=== PATIENT | female | born 1990 | race Caucasian/White ===

== ENCOUNTER 2016-11-19 11:47 | Emergency (ER) | payer BC ==
[~2016-11-19] VITALS: Wt 60.0 kg
[2016-11-19] MEDS ORDERED: ONDANSETRON 4 MG INJ IV STA (12:28)
[2016-11-19] MEDS ORDERED: SOD CHLORIDE 0.9% 1,000 ML IV ONE (12:30)
--- NOTE | 2016-11-19 12:34 | ERD ---
ER Documentation Chief Complaint Date/Time DATE: 11/19/16 TIME: 12:30 Chief Complaint abd pain, n/v/d HPI Patient is a 26-year-old female who presents to the ED with generalized abdominal pain, nausea and diarrhea since last night. She states that she has had multiple episodes of nonbloody, non-tarry, not lack diarrhea. Denies vomiting. Denies fever or chills. Denies headache or dizziness. Denies recent travel. She states that she had [employer] yesterday, likely could be related to this. She is not taking any medications for symptom. She also states that she feels dehydrated and has not had any fluids today. No pelvic pain. No vaginal bleeding. No dysuria urgency. ROS All systems reviewed and are negative except as per history of present illness. Medications Home Meds Active Scripts Ondansetron Hcl* (Zofran*) 4 Mg Tablet, 4 MG PO Q6H for NAUSEA AND/OR VOMITING, #30 TAB Prov:EAGLE TURNER PA-C 11/19/16 Electrolyte,Oral (Pedialyte) 1,000 Ml Solution, 100 ML PO Q6 Y for DIARRHEA for 7 Days, ML Prov:EAGLE TURNER-Cherri 11/19/16 Allergies Allergies: Coded Allergies: No Known Allergy (Unverified , 11/19/16) PMhx/Soc Medical and Surgical Hx: pt denies Medical Hx, pt denies Surgical Hx History of Surgery: No Anesthesia Reaction: No Hx Neurological Disorder: No Hx Respiratory Disorders: No Hx Cardiac Disorders: No Hx Psychiatric Problems: No Hx Miscellaneous Medical Probl: No Hx Alcohol Use: Yes (socially) Hx Substance Use: Yes (marijuana daily) Hx Tobacco Use: No Smoking Status: Never smoker FmHx Family History: No coronary disease, No diabetes, No other Physical Exam Vitals Vital Signs Date Time Temp Pulse Resp B/P Pulse Ox O2 Delivery O2 Flow Rate FiO2 11/19/16 11:50 98.6 82 20 123/58 100 Physical Exam GENERAL: Well-developed, well-nourished female. Appears in no acute distress. LUNG: Clear to auscultation bilaterally. No rhonchi, wheezing, rales or coarse breath sounds. HEART: Regular rate and rhythm. No murmurs, rubs or gallops. ABDOMEN: No scars, ecchymosis or rashes noted. Soft, nontender, and nondistended. Positive bowel sounds in all four quadrants. No rebound tenderness , no guarding. (-) McBurneys point tenderness. No CVA tenderness. No focal point tenderness. No pelvic pain SKIN: Normal color. Warm and dry. No rashes or lesions. Capillary refill < 2 seconds Results 24 hrs Laboratory Tests Test 11/19/16 12:49 Bedside Urine Blood 1+ Bedside Urine Glucose (UA) Negative Bedside Urine Ketones (LAB) Negative Bedside Urine Leukocyte Esterase (L Negative Bedside Urine Nitrite (LAB) Negative Bedside Urine Protein (LAB) Negative Bedside Urine pH (LAB) 5.5 Current Medications Medications (Trade) Dose Ordered Sig/Kamala Route PRN Reason Start Time Stop Time Status Last Admin Dose Admin Sodium Chloride (NS) 1,000 ml @ 1,000 mls/hr Q1H ONCE IV 11/19/16 12:30 11/19/16 13:29 DC 11/19/16 12:47 Ondansetron HCl (Zofran Inj) 4 mg ONCE STAT IV 11/19/16 12:28 11/19/16 12:30 DC 11/19/16 12:47 Procedures/MDM ER COURSE: I kept the patient and/or family informed of laboratory and diagnostic imaging results throughout the emergency room course. PROCEDURES: IV Fluids, zofran LAB INTERPRETATION: UA showed no evidence of leukocytes, nitrites or hematuria. Urine test was negative. MEDICAL DECISION MAKING: This is a 26-year-old female who presents with generalized abdominal pain, diarrhea and nausea since last night. Vital signs were reviewed. Patient is afebrile. Patient is not hypoxic. Patient is not toxic or ill-appearing. Patient is afebrile. Patient likely has abdominal pain of viral etiology. Low suspicion for ACS, AAA, perforated ulcer, bowel obstruction, cholecystitis, choledocholithiasis, cholangitis, pancreatitis, hepatic abscess, appendicitis, diverticulitis, gastroenteritis, hepatitis, peptic ulcer disease, HELLP syndrome. CT risks versus benefits explained to patient. I do not think a CT scan is needed today as she does not have focal tenderness. Patient is feeling much better after fluids. However she would like to discontinue the rest of the fluids. DISCHARGE: At this time, patient is stable for discharge and outpatient management with no new complaints during the ER course. Patient was sent home with Zofran and Jw. Patient will be discharged home with instructions to recheck for new or worsening symptoms such as fever, nausea, weakness, LOC and to follow up with primary care in the next 1-2 days. Patient was advised to return to the ER for any new or worsening symptoms. Plan was discussed and patient and/or family understands and agrees. Home instructions were given. Departure Diagnosis: Primary Impression: Abdominal pain Abdominal location: generalized Qualified Code: R10.84 - Generalized abdominal pain Additional Impression: Diarrhea Diarrhea type: unspecified type Qualified Code: R19.7 - Diarrhea, unspecified type Condition: Stable EAGLE TURNER PA-C Nov 19, 2016 12:34
[2016-11-19 12:46] LABS: URINE BLOOD (Dip) POC 1+ (NEGATIVE)
[2016-11-19] MEDS ORDERED: ELEC100080 PO (14:10)
[2016-11-19] MEDS ORDERED: ONDA4TAB8 PO (14:11)
[2016-11-19 14:17] VITALS: BP 118/62; PULSE 80; RESP 20; TEMP 97.9
== END 2016-11-19 14:17 | disposition home or self-care (01) ==
LOC: FTE 11:47
DX: R10.84 Generalized abdominal pain (principal); R19.7 Diarrhea, unspecified; R11.0 Nausea
CPT/HCPCS: 81003; 96374; 99284; J2405; J7030

== ENCOUNTER 2016-11-20 14:12 | Emergency (ER) | payer BC ==
[~2016-11-20] VITALS: Wt 56.8 kg
[~2016-11-20 14:12] MED LIST: ELEC100080 PO; ONDA4TAB8 PO
[2016-11-20] MEDS ORDERED: SOD CHLORIDE 0.9% 1,000 ML IV STA (15:06)
[2016-11-20] MEDS ORDERED: ONDANSETRON 4 MG INJ IV STA (15:06)
[2016-11-20] MEDS ORDERED: morphine 2 MG INJ IV STA (15:06)
[2016-11-20 16:31] LABS: BASOPHIL # 0.1 10^3/ul (0.0-0.1); BASOPHILS % 0.5 % (0.0-2.0); HEMATOCRIT 35.5 % (37.0-47.0); LYMPHOCYTES # 2.3 10^3/ul (0.8-2.9); LYMPHOCYTES % 20.1 % (15.0-51.0); MEAN CORPUSCULAR HGB CONC 33.7 g/dl (32.0-37.0); MEAN CORPUSCULAR VOLUME 83.1 fl (82.0-101.0); MONOCYTE # 0.4 10^3/ul (0.3-0.9); MONOCYTES % 3.3 % (0.0-11.0); NEUTROPHIL # 8.5 10^3/ul (1.6-7.5); NEUTROPHILS % 76.1 % (39.0-77.0); PLATELET COUNT 252 10^3/UL (140-440); RED BLOOD COUNT 4.28 10^6/ul (4.20-5.40); RED CELL DISTRIBUTION WIDTH 13.7 % (11.5-14.5); UNCORRECTED WBC 11.2 10^3/ul (4.8-10.8); WHITE BLOOD COUNT 11.2 10^3/ul (4.8-10.8)
[2016-11-20 16:33] LABS: ADD UMIC NO; URINE BILIRUBIN (Dip) NEGATIVE (NEGATIVE); URINE BLOOD (Dip) NEGATIVE (NEGATIVE); URINE COLOR YELLOW (YELLOW); URINE GLUCOSE (Dip) NEGATIVE (NEGATIVE); URINE KETONES (Dip) 15 (NEGATIVE); URINE LEUKOCYTE ESTERASE (Dip) NEGATIVE (NEGATIVE); URINE NITRITE (Dip) NEGATIVE (NEGATIVE); URINE TOTAL PROTEIN (Dip) NEGATIVE (NEGATIVE); URINE UROBILINOGEN (Dip) 0.2 E.U./dL (0.1-1.0)
[2016-11-20 16:34] LABS: CONDITION 1
--- NOTE | 2016-11-20 16:43 | ERD ---
ER Documentation Chief Complaint Date/Time DATE: 11/20/16 TIME: 16:40 Chief Complaint MILD ABD PAIN WITH NAUSEA AND VOMITNG NO RELEIF WITH MEDICATIONS HPI Patient is a 26-year-old female who returns to the ED with generalized abdominal pain and diarrhea. She states that 2 days ago she developed multiple episodes of nonbloody, non-black and non-tarry diarrhea. She states that she came to the ER and was given IV fluids and Zofran. She states that she felt much better after the fluids and Zofran and continued to take the Zofran at night along with Pedialyte, apple sauce and crackers. She states that she felt better the rest of the day until she woke up this morning with one episode of diarrhea and generalized abdominal pain. She does not have nausea or vomiting. Denies fever or chills. Denies headache or dizziness. Denies leg pain, swelling. Denies cough, shortness of breath or difficulty breathing. ROS All systems reviewed and are negative except as per history of present illness. Medications Home Meds Active Scripts Ondansetron Hcl* (Zofran*) 4 Mg Tablet, 4 MG PO Q6H for NAUSEA AND/OR VOMITING, #30 TAB Prov:EAGLE TURNER PA-C 11/19/16 Electrolyte,Oral (Pedialyte) 1,000 Ml Solution, 100 ML PO Q6 Y for DIARRHEA for 7 Days, ML Prov:EAGLE TURNER PA-C 11/19/16 Allergies Allergies: Coded Allergies: No Known Allergy (Unverified , 11/19/16) PMhx/Soc History of Surgery: No Anesthesia Reaction: No Hx Neurological Disorder: No Hx Respiratory Disorders: No Hx Cardiac Disorders: No Hx Psychiatric Problems: No Hx Miscellaneous Medical Probl: No Hx Alcohol Use: Yes (socially) Hx Substance Use: Yes (marijuana daily) Hx Tobacco Use: No Physical Exam Vitals Vital Signs Date Time Temp Pulse Resp B/P Pulse Ox O2 Delivery O2 Flow Rate FiO2 11/20/16 14:16 98.8 73 20 119/58 99 Physical Exam GENERAL: Well-developed, well-nourished female. Appears in no acute distress. HEAD: Normocephalic, atraumatic. EYES: Pupils are equally reactive bilaterally. EOMs grossly intact. No conjunctival erythema. ENT: Moist mucous membranes. No uvula deviation. No kissing tonsils. No exudates. NECK: Supple. No lymphadenopathy or thyromegaly. No meningismus. negative kernig. negative brudinski. LUNG: Clear to auscultation bilaterally. No rhonchi, wheezing, rales or coarse breath sounds. HEART: Regular rate and rhythm. No murmurs, rubs or gallops. ABDOMEN: No scars, ecchymosis or rashes noted. Soft, nontender, and nondistended. Positive bowel sounds in all four quadrants. No rebound tenderness , no guarding. (-) McBurneys point tenderness. No CVA tenderness. BACK: No midline tenderness. SKIN: Normal color. Warm and dry. No rashes or lesions. Capillary refill < 2 seconds Result Diagram: 11/20/16 1605 11/20/16 1605 Results 24 hrs Laboratory Tests Test 11/20/16 16:05 Alanine Aminotransferase (ALT/SGPT) 18IU/L Albumin 4.1g/dl Albumin/Globulin Ratio 1.28 Alkaline Phosphatase 60IU/L Anion Gap 18 Aspartate Amino Transf (AST/SGOT) 22IU/L Basophils # 0.110^3/ul Basophils % 0.5% Blood Morphology Comment Blood Urea Nitrogen 6mg/dl Calcium Level 9.2mg/dl Carbon Dioxide Level 23mmol/L Chloride Level 106mmol/L Creatinine 0.79mg/dl Direct Bilirubin 0.00mg/dl Eosinophils # 0.010^3/ul Eosinophils % 0.0% Globulin 3.20g/dl Glucose Level 82mg/dl Hematocrit 35.5% Hemoglobin 12.0g/dl Indirect Bilirubin 0.3mg/dl Lipase 68U/L Lymphocytes # 2.310^3/ul Lymphocytes % 20.1% Mean Corpuscular Hemoglobin 28.0pg Mean Corpuscular Hemoglobin Concent 33.7g/dl Mean Corpuscular Volume 83.1fl Mean Platelet Volume 9.0fl Monocytes # 0.410^3/ul Monocytes % 3.3% Neutrophils # 8.510^3/ul Neutrophils % 76.1% Nucleated Red Blood Cells # 0.010^3/ul Nucleated Red Blood Cells % 0.0/100WBC Platelet Count 56387^3/UL Potassium Level 3.9mmol/L Red Blood Count 4.2810^6/ul Red Cell Distribution Width 13.7% Sodium Level 143mmol/L Total Bilirubin 0.3mg/dl Total Protein 7.3g/dl Urine Bilirubin NEGATIVE Urine Clarity CLEAR Urine Color YELLOW Urine Glucose NEGATIVE% Urine Hemoglobin NEGATIVE Urine Ketones 15 Urine Leukocyte Esterase NEGATIVE Urine Nitrite NEGATIVE Urine Specific [place] >=1.030 Urine Total Protein NEGATIVE Urine Urobilinogen 0.2 E.U./dL Urine pH 6.0 White Blood Count 11.210^3/ul Current Medications Medications (Trade) Dose Ordered Sig/Kamala Route PRN Reason Start Time Stop Time Status Last Admin Dose Admin Sodium Chloride (NS) 1,000 ml @ 1,000 mls/hr Q1H STAT IV 11/20/16 15:06 11/20/16 16:05 DC 11/20/16 16:12 Morphine Sulfate (morphine) 2 mg ONCE STAT IV 11/20/16 15:06 11/20/16 15:10 DC 11/20/16 16:13 Ondansetron HCl (Zofran Inj) 4 mg ONCE STAT IV 11/20/16 15:06 11/20/16 15:10 DC 11/20/16 16:12 Procedures/MDM ER COURSE: I kept the patient and/or family informed of laboratory and diagnostic imaging results throughout the emergency room course. EKG, MONITORS, & DIAGNOSTIC IMAGING: [place] [id number] Radiology Main Line: [phone] DIAGNOSTIC IMAGING REPORT Patient: DADA HAND : 1990 Age: 26 Sex: F MR #: [id number] DOS: 11/20/16 [facility]6 Ordering MD: EAGLE TURNER PA-C Location: [facility] Room/Bed: PROCEDURE: CT Abdomen and Pelvis without intravenous contrast. CLINICAL INDICATION: Abdominal pain with nausea. . TECHNIQUE: CT scan of the abdomen and pelvis without intravenous contrast was performed on a multi-slice CT scanner. Coronal and sagittal reformatted images were obtained from the axial source images. Images were reviewed on a high- resolution PACS workstation. Total DLP = 343.9 mGy-cm. CTDIvol = 6.6 mGy. One or more of the following dose reduction techniques were used: Automated exposure control. Adjustment of the mA and/or kV according to patient size. Use of iterative reconstruction technique. COMPARISON: None. FINDINGS: CT abdomen and pelvis: The lung bases are clear. The heart size is normal in size. The liver is normal in size and density without focal mass or intrahepatic biliary dilatation. The spleen is normal in size and homogeneous in density. The pancreas as visualized is normal. The gallbladder shows no evidence of stones or distension . The adrenal glands are normal. The kidneys are symmetrically unremarkable. No urolithiasis, obstructive uropathy, or solid mass lesion is seen. The stomach is partially collapsed, but is grossly unremarkable. The small bowels are unremarkable. The colon and rectum are normal. There is no evidence of appendicitis or diverticulitis. The pelvic organs are normal. The bladder is decompressed. There is trace pelvic free fluid.. There is no abdominal or pelvic adenopathy, free air, mass or mesenteric inflammation. The aorta is normal in caliber and course. The osseous structures are intact. No osteolytic or osteoblastic lesions are identified. The soft tissues are within normal limits. Lack of IV and oral contrast limits sensitivity of exam. IMPRESSION: 1. Unremarkable noncontrast CT abdomen and pelvis without acute pathology identified. RPTAT: JJ .Kike Umanzor MD, MD Date Time Electronically viewed and signed by .Kike Umanzor MD, MD on 11/20/2016 16:48 .L/ CC: EAGLE TURNER PA-C PROCEDURES: IV fluids, morphine, Zofran patient tolerated medication well with no adverse reaction. Seen improvement in symptoms. LAB INTERPRETATION: CBC showed no evidence of systemic infection or severe anemia. CMP showed no evidence of electrolyte abnormalities, severe acidosis, alkalosis, renal failure , or liver disease. Lipase showed no evidence of acute pancreatitis. UA showed no evidence of leukocytes, nitrites or hematuria. Urine test was negative. MEDICAL DECISION MAKING: This is a 26-year-old female who presents with generalized abdominal pain and diarrhea. Vital signs were reviewed. Patient is afebrile. Patient is not hypoxic. Patient is not toxic or ill-appearing. Patient does not have focal tenderness on exam. Patient likely has abdominal pain and diarrhea of viral etiology. Since patient came to the ER for second time, labs and CT scan were ordered. She had a white count of 11.2 likely stress reaction with no neutrophil shift. Her CAT scan is read by radiologist was unremarkable. Low suspicion for ACS, AAA, perforated ulcer, bowel obstruction, cholecystitis, choledocholithiasis, cholangitis, pancreatitis, hepatic abscess, appendicitis, diverticulitis, gastroenteritis, hepatitis, peptic ulcer disease, HELLP syndrome. DISCHARGE: At this time, patient is stable for discharge and outpatient management with no new complaints during the ER course. Patient was sent home with instructions to follow a BRAT diet and to continue the Pedialyte and Zofran. A note was given for work. Labs and imaging studies were also given to patient.. Patient will be discharged home with instructions to recheck for new or worsening symptoms such as fever, nausea, weakness, LOC and to follow up with primary care in the next 1-2 days. Patient was advised to return to the ER for any new or worsening symptoms. Plan was discussed and patient and/or family understands and agrees. Home instructions were given. Departure Diagnosis: Primary Impression: Diarrhea Diarrhea type: unspecified type Qualified Code: R19.7 - Diarrhea, unspecified type Additional Impression: Abdominal pain Abdominal location: generalized Qualified Code: R10.84 - Generalized abdominal pain Condition: Stable EAGLE TURNER PA-C Nov 20, 2016 16:43
[2016-11-20 16:44] LABS: ALBUMIN 4.1 g/dl (3.3-4.9)
[2016-11-20 16:45] LABS: POTASSIUM 3.9 mmol/L (3.5-5.1)
[2016-11-20 16:46] LABS: CREATININE 0.79 mg/dl (0.44-1.00)
[2016-11-20 16:47] LABS: ALBUMIN/GLOBULIN RATIO 1.28; BILIRUBIN,INDIRECT 0.3 mg/dl (0-1.1); BILIRUBIN,TOTAL 0.3 mg/dl (0.2-1.3); CALCIUM 9.2 mg/dl (8.4-10.2); TOTAL PROTEIN 7.3 g/dl (6.1-8.1)
--- NOTE | 2016-11-20 16:48 | RADRPT ---
PROCEDURE: CT Abdomen and Pelvis without intravenous contrast. CLINICAL INDICATION: Abdominal pain with nausea. . TECHNIQUE: CT scan of the abdomen and pelvis without intravenous contrast was performed on a multi -slice CT scanner. Coronal and sagittal reformatted images were obtained from the axial source image s. Images were reviewed on a high-resolution PACS workstation. Total DLP = 343.9 mGy-cm. CTDIvol = 6.6 mGy. One or more of the following dose reduction techniques were used: Automated exposure control. Adjustment of the mA and/or kV according to patient size. Use of iterative reconstruction technique. COMPARISON: None. FINDINGS: CT abdomen and pelvis: The lung bases are clear. The heart size is normal in size. The liver is normal in size and densit y without focal mass or intrahepatic biliary dilatation. The spleen is normal in size and homogeneo us in density. The pancreas as visualized is normal. The gallbladder shows no evidence of stones or distension . The adrenal glands are normal. The kidneys are symmetrically unremarkable. No ur olithiasis, obstructive uropathy, or solid mass lesion is seen. The stomach is partially collapsed, but is grossly unremarkable. The small bowels are unremarkable. The colon and rectum are normal. There is no evidence of appendicitis or diverticulitis. The pelvi c organs are normal. The bladder is decompressed. There is trace pelvic free fluid.. There is no ab dominal or pelvic adenopathy, free air, mass or mesenteric inflammation. The aorta is normal in caliber and course. The osseous structures are intact. No osteolytic or osteo blastic lesions are identified. The soft tissues are within normal limits. Lack of IV and oral con trast limits sensitivity of exam. IMPRESSION: 1. Unremarkable noncontrast CT abdomen and pelvis without acute pathology identified. RPTAT: JJ .Kike Umanzor MD, MD Date Time Electronically viewed and signed by .Kike Umanzor MD, on 11/20/2016 16:48 .L/
[2016-11-20 17:45] VITALS: BP 95/61; PULSE 78; RESP 20; TEMP 98.2
== END 2016-11-20 17:45 | disposition home or self-care (01) ==
LOC: FTE 14:12
DX: R19.7 Diarrhea, unspecified (principal)
CPT/HCPCS: 36415; 74176; 80053; 81003; 83690; 85025; 96374; 96375; 99285; J2270; J2405; J7030